=== PATIENT | male | born 1985 | race Asian ===

== ENCOUNTER 2016-12-29 07:36 | Day surgery (SDC) | payer OTHER ==
[~2016-12-29] VITALS: Ht 177.8 cm; Wt 92.9 kg
[2016-12-29] VITALS (8 sets, daily range): BP systolic 103–168; BP diastolic 55–90
[2016-12-29] MEDS ORDERED: SUMA25TA3 PO (07:55)
[2016-12-29] MEDS ORDERED: NS 1,000 ML IV SCH (08:00)
[2016-12-29] MEDS ORDERED: MORPHINE 4 MG/ML 1ML SYRINGE IV PRN ×2 (08:15→17:30)
[2016-12-29] MEDS ORDERED: NS 1,000 ML IV ONE ×2 (08:15→11:00)
[2016-12-29] MEDS ORDERED: ONDANSETRON 4MG/2ML VIAL (J2405) IV ONE (08:15)
[2016-12-29 09:03] LABS: BASO # 0.1 K/mm3 (0.0-0.2); BASO % 0.6 % (0.0-1.0); EOS # 0.2 K/mm3 (0.0-0.50); EOS % 1.9 % (0.0-3.0); LARGE UNSTAINED CELL # 0.1 K/mm3 (0.0-0.4); LARGE UNSTAINED CELL % 1.4 % (0.0-4.0); LYMPH # 2.6 K/mm3 (1.5-4.5); LYMPH % 24.4 % (24.0-44.0); MEAN CORPUSCULAR HEMOGLOBIN 31.1 pg (27.0-33.0); MEAN CORPUSCULAR HGB CONC 34.2 g/dl (32.0-36.5); MEAN CORPUSCULAR VOLUME 90.8 fl (80.0-96.0); MONO # 0.9 K/mm3 (0.0-0.8); MONO % 8.6 % (0.0-5.0); NEUTROPHILS # 6.3 K/mm3 (1.8-7.7); PLATELET COUNT, AUTOMATED 213 k/mm3 (150-450); RED CELL DISTRIBUTION WIDTH 12.3 % (11.5-14.5)
[2016-12-29 09:10] LABS: INR 0.96
[2016-12-29 09:24] LABS: ALBUMIN/GLOBULIN RATIO 1.29 (1.00-1.93); ALKALINE PHOSPHATASE 61 U/L (45-117); ALT/SGPT 33 U/L (12-78); AMYLASE 46 U/L (25-115); ANION GAP 8 MEQ/L (8-16); AST/SGOT 14 U/L (15-37); BILIRUBIN,DIRECT 0.1 MG/DL (0.0-0.2); BILIRUBIN,TOTAL 0.4 MG/DL (0.2-1.0); BLOOD UREA NITROGEN 11 MG/DL (7-18); CALCIUM LEVEL 8.9 MG/DL (8.5-10.1); CARBON DIOXIDE LEVEL 28 MEQ/L (21-32); CHLORIDE LEVEL 103 MEQ/L (98-107); GLOMERULAR FILTRATION RATE > 60.0 (>60); GLUCOSE, FASTING 101 MG/DL (70-105); POTASSIUM SERUM 3.9 MEQ/L (3.5-5.1); SODIUM LEVEL 139 MEQ/L (136-145); TOTAL PROTEIN 7.1 GM/DL (6.4-8.2)
[2016-12-29] MEDS ORDERED: ISOVUE-370 76% 100ML VIAL (Q9967) As Ordered ONE (09:52)
[2016-12-29] MEDS ORDERED: ACET50TAOT PO (10:42)
[2016-12-29] MEDS ORDERED: PIPERACILLIN/TAZOBACTAM SOD 4.5 GM in D5W MINI-BAG PLUS 50 ML IV ONE (11:00)
--- NOTE | 2016-12-29 11:30 | REP ---
CT abdomen and pelvis with IV contrast: 12/29/2016. Clinical history: Right lower quadrant pain, rule out appendicitis. Findings: There were no prior studies. The patient received a bolus of 100 mL Isovue 370 scanning through the abdomen pelvis with coronal and sagittal reconstructions provided. CT abdomen: Lung bases show minor dependent atelectatic change without effusion, infiltrate, nodule or mass. Heart not enlarged. There is no pericardial thickening or effusion. The liver, spleen, stomach, gallbladder, pancreas, adrenal glands and kidneys, abdominal small bowel loops and colon were all unremarkable. There is no renal stone, ureteral dilatation or stone or hydronephrosis. Bone windows show minor degenerative changes at L5-S1, but the lumbar and lower thoracic spine and visualized ribs were otherwise unremarkable. CT pelvis: Hips, pelvis, sacrum, SI joints and lumbosacral junction grossly intact. The cecum shows the appendix extending medially and then curving back posteriorly and superiorly with its tip adjacent to the lateral margin of the cecal tip. There are inflammatory changes adjacent to the cecum and appendix. The distal appendix is dilated. There is appendicolith in its mid distal course. Small bowel loops grossly intact. The distal left colon, cecum and rectum intact. There is no ventral or inguinal hernia nor pathologic inguinal adenopathy. Impression: 1. There is evidence of acute appendicitis with the distal appendix up to 11 mm in short axis and with inflammatory changes and appendicolith noted. No abscess, perforation or free air. No ascites or other acute finding. The exam otherwise unremarkable. Signed by Mark Caceres MD 12/29/2016 09:17 P
[2016-12-29] MEDS ORDERED: MORPHINE 2 MG/ML 1ML SYRINGE IV ONE (11:45)
[2016-12-29] MEDS ORDERED: LR 1,000 ML IV SCH (15:00)
[2016-12-29] MEDS ORDERED: BUPIVACAINE/EPIN 0.25% 30 ML VIAL As Ordered ONE (15:32)
[2016-12-29] MEDS ORDERED: MIDAZOLAM INJ 2 MG/2 ML VIAL (J2250) As Ordered ONE (16:38)
[2016-12-29] MEDS ORDERED: ROCURONIUM BROMIDE 50 MG/5 ML VIAL/SYRINGE As Ordered ONE (16:38)
[2016-12-29] MEDS ORDERED: fentaNYL 250 MCG/5 ML INJECTION (J3010) As Ordered ONE (16:38)
[2016-12-29] MEDS ORDERED: PROPOFOL 200 MG/20 ML VIAL As Ordered ONE (16:38)
[2016-12-29] MEDS ORDERED: LIDOCAINE 2% INJ 100 MG/5 ML SDV (FOR ANES.) As Ordered ONE (16:38)
[2016-12-29] MEDS ORDERED: KETOROLAC 60 MG/2 ML VIAL (J1885) As Ordered ONE (16:42)
[2016-12-29] MEDS ORDERED: GLYCOPYRROLATE INJ 0.2 MG/ML 2 ML VIAL As Ordered ONE (16:42)
[2016-12-29] MEDS ORDERED: ONDANSETRON 4MG/2ML VIAL (J2405) As Ordered ONE (16:42)
[2016-12-29] MEDS ORDERED: NEOSTIGMINE 1MG/ML 5 ML SYRINGE (J2710) As Ordered ONE (16:42)
[2016-12-29] MEDS: LR 1,000 ML IV SCH (17:30)
[2016-12-29] MEDS ORDERED: KETOROLAC 30 MG/ML VIAL (J1885) IV PRN (17:30)
[2016-12-29] MEDS ORDERED: PROMETHAZINE INJ 25 MG/ML VIAL (J2550) IV PRN (17:30)
[2016-12-29] MEDS ORDERED: ONDANSETRON 4MG/2ML VIAL (J2405) IV PRN ×2 (17:30→18:00)
[2016-12-29] MEDS ORDERED: METOCLOPRAMIDE INJ 10MG/2ML VIAL (J2765) IV PRN (17:30)
[2016-12-29] MEDS ORDERED: MORPHINE 2 MG/ML 1ML SYRINGE IV PRN (17:30)
[2016-12-29] MEDS ORDERED: NORCO, ANEXSIA 5/325MG TABLET (HYDROcodone/ACETAMINOPHEN) PO PRN (17:30)
[2016-12-29] MEDS ORDERED: fentaNYL 100 MCG/2 ML INJECTION (J3010) IV PRN (18:00)
[2016-12-29] MEDS ORDERED: PERCOCET 5MG/325MG TAB PO PRN (18:00)
[2016-12-29] MEDS ORDERED: NORCO, ANEXSIA 5/325MG TABLET (HYDROcodone/ACETAMINOPHEN) As Ordered ONE (18:07)
[2016-12-29] MEDS: NORCO, ANEXSIA 5/325MG TABLET (HYDROcodone/ACETAMINOPHEN) PO PRN (18:11)
[2016-12-29] MEDS: PIPERACILLIN/TAZOBACTAM SOD 3.375 GM in D5W MINI-BAG PLUS 50 ML IV SCH (18:57)
[2016-12-30] VITALS: BP 109/62
[2016-12-30] MEDS: PIPERACILLIN/TAZOBACTAM SOD 3.375 GM in D5W MINI-BAG PLUS 50 ML IV SCH ×2 (00:58→06:38)
[2016-12-30 04:00] VITALS: BP 120/69
[2016-12-30] MEDS: LR 1,000 ML IV SCH ×2 (04:00→08:42)
[2016-12-30] MEDS: NORCO, ANEXSIA 5/325MG TABLET (HYDROcodone/ACETAMINOPHEN) PO PRN ×2 (06:39→10:42)
[2016-12-30 08:00] VITALS: BP 122/66
[2016-12-30] MEDS ORDERED: AUGMENTIN 500 MG TAB PO SCH (09:00)
[2016-12-30] MEDS ORDERED: IBUP1TAB6 PO (09:41)
[2016-12-30] MEDS ORDERED: NORCOTAB PO (09:41)
[2016-12-30] MEDS ORDERED: AMOX500T2 PO (09:41)
[2016-12-30] MEDS ORDERED: IBUPROFEN 600 MG TAB PO PRN (09:45)
--- NOTE | 2017-01-04 19:16 | HPE ---
DATE OF ADMISSION: 12/29/2016 CHIEF COMPLAINT: Appendicitis. HISTORY OF PRESENT ILLNESS: The patient is a 31-year-old male who is in the , developed abdominal pain over the last 24 hours prior to admission and specifically over the last 6-8 hours, the patient had increasing abdominal pain, discomfort and was sent to the emergency room for additional recommendations. His pain which was all localized to the right lower quadrant with tenderness in the right lower quadrant, prompted blood work which revealed a normal white count, however, imaging studies revealed evidence of acute appendicitis with no other periappendiceal inflammation and thus early appendicitis. I was asked to see him for additional recommendations. PAST MEDICAL HISTORY: Is significant for history of questionable appendicitis when he was young treated by antibiotics, history of migraines/headaches, history of left ankle surgery. MEDICATIONS: Include: - sumatriptan - Tylenol PHYSICAL EXAMINATION: Reveals a 31-year-old male who looks his stated age. HEENT is unremarkable. Neck: Supple without adenopathy. Lungs: Clear to auscultation without crackles, wheezes or rhonchi. Heart is regular without murmur. Abdomen is soft, nondistended, but he is tender in the right lower quadrant with guarding and without rebound. He has no referred rebound and otherwise only tender in the right lower quadrant. IMPRESSION AND PLAN: The patient has evidence of acute appendicitis on his CT scan. Clinical history consistent with appendicitis and physical exam is consistent with acute appendicitis. I would recommend that we proceed with laparoscopic appendectomy. Risks as well as benefits have been discussed with him at length and he would like to proceed with this as soon as possible.
--- NOTE | 2017-01-05 06:42 | RO ---
DATE OF PROCEDURE: 12/29/2016 PREOPERATIVE DIAGNOSIS: Acute appendicitis. POSTOPERATIVE DIAGNOSIS: Acute appendicitis. PROCEDURE: Laparoscopic appendectomy. SURGEON: Jaziel Mallory MD RADIO MAINTAINER: ANESTHESIA: General endotracheal anesthesia. ESTIMATED BLOOD LOSS: Minimal. FLUIDS: Crystalloid. DESCRIPTION OF PROCEDURE: The patient was brought to the operating room, was given general anesthesia. After adequate anesthesia and preoperative antibiotics were given, the patient was prepped and draped in usual sterile fashion. Next, a supraumbilical incision was made with skin knife. Blunt dissection was carried down to fascia. Fascia was grasped with See clamps, elevated and a Veress needle placed into the abdominal cavity, insufflated to 15 mm pressure. Dilating 12 mm trocar was placed at the umbilicus and under direct visualization a suprapubic and left lower quadrant 5 mm trocars were placed. The appendix was seen. It was mobilized off surrounding structures using some minimal blunt dissection and the mesentery of the appendix was taken down with Harmonic scalpel. Eventually this was dissected down to the base of the appendix and then the base of the appendix was transected using a EBONIE stapler, placed in an EndoCatch bag and brought out through the umbilical site. Next, the right lower quadrant was copiously irrigated until clear. All incisions were closed with #4-0 Vicryl after the umbilicus was closed with #0 Vicryl in the fascial layer. Steri-Strips and dry sterile dressing was applied. The patient was awakened, extubated, brought to recovery room awake, alert and hemodynamic stable. Sponge and needle counts correct times two.
== END 2016-12-30 11:47 | disposition home or self-care (01) ==
LOC: M ED 07:36 → M SDC 12:00 → M PED 13:48 → M SDC 12-30 11:47
PROVIDERS: ATTEND Surgery
DX: K35.89 Other acute appendicitis (principal); F17.210 Nicotine dependence, cigarettes, uncomplicated
CPT/HCPCS: 44970; 74177; 80048; 80076; 81001; 82150; 83605; 83690; 85025; 85610; 85730; 87040; 87086; 88304; 93041; 94760; 96361; 96365; 96366; 96375; 96376; 99285; J1885; J2250; J2405; J2543; J2710; J3010; Q9967